=== PATIENT | female | born 1985 | race African-American/Black ===

== ENCOUNTER 2016-06-23 12:19 | Emergency (ER) | payer SELFPAY ==
[~2016-06-23] VITALS: Ht 165.1 cm; Wt 61.1 kg
[~2016-06-23 12:19] MED LIST: BACTRIM,SEPT1 TABLET PO; SILVADENE20 GM TP; ULTRAM50 MG PO; ZOFRAN ODT4 MG PO
[2016-06-23 14:41] LABS: INFLUENZA A VIRAL ANTIGEN POSITIVE; INFLUENZA B VIRAL ANTIGEN NEGATIVE
[2016-06-23] MEDS ORDERED: TESSALON PERLE100 MG PO (14:51)
[2016-06-23] MEDS ORDERED: MOBIC7.5 MG PO (14:51)
[2016-06-23] MEDS ORDERED: CHERATUSSIN AC473 ML PO (14:51)
[2016-06-23 15:06] VITALS: BP 117/68
== END 2016-06-23 15:32 | disposition home or self-care (01) ==
LOC: RME 12:19 → EME 12:19 → RME 15:32
PROVIDERS: Nurse Practitioner Family
DX: J10.1 Influenza due to other identified influenza virus with other respiratory manifestations (principal); M79.1 Myalgia; F17.200 Nicotine dependence, unspecified, uncomplicated
CPT/HCPCS: 71020; 87502; 99281; 99284